=== PATIENT | female | born 1970 | race Caucasian/White ===

== ENCOUNTER 2017-06-11 20:32 | Emergency (ER) | payer BC ==
[2017-06-11 22:18] VITALS: BP 111/85
[2017-06-11] MEDS ORDERED: DOXYcycline CAP(*) 100 MG PO ONE (22:46)
--- NOTE | 2017-06-11 22:50 | ED ---
Skin Complaint - HPI Summary HPI Summary: 46F presents with rash on posterior right thigh for a day. She states area is itchy and appeared to be a bulls eye. She states she saw multiple ticks on her 5 days ago. She denies any fever, neck stiffness, or fatigue. She is concerned she has lyme. - History of Current Complaint Chief Complaint: EDRashSkinAbscess Time Seen by Provider: 06/11/17 21:45 Stated Complaint: RIGHT LEG RASH Pain Intensity: 0 - Allergy/Home Medications Allergies/Adverse Reactions: Allergies Allergy/AdvReac Type Severity Reaction Status Date / Time Codeine Allergy Hives Verified 06/11/17 20:46 Pineapple Allergy Unknown Verified 06/11/17 20:46 Reaction Details PMH/Surg Hx/FS Hx/Imm Hx Endocrine/Hematology History: Denies: Hx Anticoagulant Therapy, Hx Blood Disorders, Hx Diabetes Cardiovascular History: Denies: Hx Hypertension, Hx Pacemaker/ICD History: Reports: Other Problems/Disorders - cervical ca Denies: Hx Renal Disease Musculoskeletal History: Reports: Other Musculoskeletal History - cervical disc issues w/ radiculopathy Sensory History: Denies: Hx Hearing Aid Neurological History: Reports: Hx Headaches - MIGRANES, Other Neuro Impairments/ Disorders - meniere's dz Psychiatric History: Denies: Hx Panic Disorder - Surgical History Surgery Procedure, Year, and Place: TONSILS/ADENOIDS/TUBES CHILD. CYST REMOVED OFF BACK NEAR SPINE 2007. HYSTERECTOMY 2008 (one ovary remains) D&C PRIOR TO HYSTERECTMY, AND LAPROSCOPY Infectious Disease History: No Infectious Disease History: Denies: Hx of Known/Suspected MRSA, Traveled Outside the [place] in Last 30 Days - Family History Known Family History: Positive: Cardiac Disease - Social History Alcohol Use: None Substance Use Type: Reports: None Smoking Status (MU): Never Smoked Tobacco Review of Systems Negative: Fever Negative: Chest Pain Negative: Shortness Of Breath Positive: Rash All Other Systems Reviewed And Are Negative: Yes Physical Exam Triage Information Reviewed: Yes Vital Signs On Initial Exam: Initial Vitals Temp Pulse Resp BP Pulse Ox 99.2 F 71 16 130/91 99 06/11/17 20:40 06/11/17 20:40 06/11/17 20:40 06/11/17 20:40 06/11/17 20:40 Vital Signs Reviewed: Yes Appearance: Positive: Well-Appearing Skin: Positive: Warm, Dry, Other - area of erythema on left posterior thigh with small amount of surrounding redness Head/Face: Positive: Normal Head/Face Inspection Eyes: Positive: Normal, Conjunctiva Clear Respiratory/Lung Sounds: Positive: Clear to Auscultation, Breath Sounds Present Cardiovascular: Positive: Normal, RRR Musculoskeletal: Positive: Other - good pulses Diagnostics - Vital Signs Vital Signs Temp Pulse Resp BP Pulse Ox 06/11/17 22:13 98.2 F 64 16 111/85 100 06/11/17 20:40 99.2 F 71 16 130/91 99 - Laboratory Lab Statement: Any lab studies that have been ordered have been reviewed, and results considered in the medical decision making process. Course/Dx - Course Course Of Treatment: 46F presents with rash on posterior right thigh for a day. She states area is itchy and appeared to be a bulls eye. She states she saw multiple ticks on her 5 days ago. She denies any fever, neck stiffness, or fatigue. She is concerned she has lyme. on exam has potential beginning of bulls eye rash on right posterior thigh. will treat as lyme. patient understands and agrees with plan. - Differential Diagnoses - Skin Complaint Differential Diagnoses: Cellulitis, Contact Dermatitis, Tick Born Illness - Diagnoses Provider Diagnoses: Lyme disease Discharge - Discharge Plan Condition: Good Disposition: HOME Prescriptions: DOXYcycline CAP(*) [DOXYcycline 100MG CAP(*)] 100 mg PO BID #27 cap Patient Education Materials: Lyme Disease (ED) Referrals: Nina Zheng MD [Primary Care Provider] - Additional Instructions: You are being treated for potential lyme disease Take antibiotic twice a day for 14 days, first dose given in ED Take with food, use sunscreen when go outside Follow up with primary care physician Return to ED if develop any new or worsening symptoms
== END 2017-06-11 23:17 | disposition home or self-care (01) ==
LOC: ED 20:32
DX: A69.20 Lyme disease, unspecified (principal)
CPT/HCPCS: 99281; A9270-GY

== ENCOUNTER → 2017-07-31 17:30 | Emergency (ER) | payer SELFPAY ==
[~2017-07-31 17:30] MED LIST: Bacitracin OINTMENT* 1 TUBE TOPICAL ONE
[2017-07-31 17:53] VITALS: BP 124/72
--- NOTE | 2017-07-31 19:15 | ED ---
Burn - HPI Summary HPI Summary: 46F presents with burn on right side of neck and face from oil an hour ago She states that she was at work and something fell into the grease and it splashed onto her face and into her mouth. She immediately spit the grease out and washed her mouth with cold water. She has been placing ice on her neck. She denies any chest pain, SOB, or difficulty swallowing. She has no pain in her mouth. She place burn cream on the area. - History of Current Complaint Chief Complaint: EDBurnSmokeInh Stated Complaint: GREASE LEOS ON NECK & FACE Time Seen by Provider: 07/31/17 18:56 Pain Intensity: 7 - Allergy/Home Medications Allergies/Adverse Reactions: Allergies Allergy/AdvReac Type Severity Reaction Status Date / Time Codeine Allergy Hives Verified 07/31/17 19:02 Pineapple Allergy Shortness Verified 07/31/17 19:02 of Breath PMH/Surg Hx/FS Hx/Imm Hx Endocrine/Hematology History: Denies: Hx Anticoagulant Therapy, Hx Blood Disorders, Hx Diabetes Cardiovascular History: Denies: Hx Hypertension, Hx Pacemaker/ICD History: Reports: Other Problems/Disorders - cervical ca Denies: Hx Renal Disease Musculoskeletal History: Reports: Other Musculoskeletal History - cervical disc issues w/ radiculopathy Sensory History: Denies: Hx Hearing Aid Neurological History: Reports: Hx Headaches - MIGRANES, Other Neuro Impairments/ Disorders - meniere's dz Psychiatric History: Denies: Hx Panic Disorder - Surgical History Surgery Procedure, Year, and Place: TONSILS/ADENOIDS/TUBES CHILD. CYST REMOVED OFF BACK NEAR SPINE 2007. HYSTERECTOMY 2008 (one ovary remains) D&C PRIOR TO HYSTERECTMY, AND LAPROSCOPY Infectious Disease History: No Infectious Disease History: Denies: Hx of Known/Suspected MRSA, Traveled Outside the [place] in Last 30 Days - Family History Known Family History: Positive: Cardiac Disease - Social History Alcohol Use: None Substance Use Type: Reports: None Smoking Status (MU): Never Smoked Tobacco Review of Systems Negative: Fever Negative: Chest Pain Negative: Shortness Of Breath Positive: Other - burn right side of face and neck All Other Systems Reviewed And Are Negative: Yes Physical Exam Triage Information Reviewed: Yes Vital Signs On Initial Exam: Initial Vitals Temp Pulse Resp BP Pulse Ox 98.5 F 76 18 124/72 98 07/31/17 17:50 07/31/17 17:50 07/31/17 17:50 07/31/17 17:50 07/31/17 17:50 Vital Signs Reviewed: Yes Appearance: Positive: Well-Appearing Skin: Positive: Warm, Dry, Other - 1cm burn near right side of mouth and 3cm by 4cm burn to right side of neck that is 1st degree burn without any blisters Eyes: Positive: Normal, EOMI, LEE, Conjunctiva Clear ENT: Positive: Normal ENT inspection, Pharynx normal, TMs normal Respiratory/Lung Sounds: Positive: Clear to Auscultation, Breath Sounds Present Cardiovascular: Positive: Normal, RRR Burn Calculation - [place] Formula for Fluid Resuscitation Weight: 230 lb 24 -Hour Fluid Replacement: 0.0 Diagnostics - Vital Signs Vital Signs Temp Pulse Resp BP Pulse Ox 07/31/17 17:50 98.5 F 76 18 124/72 98 - Laboratory Lab Statement: Any lab studies that have been ordered have been reviewed, and results considered in the medical decision making process. Burn Course/Dx - Course Course Of Treatment: 46F presents with burn on right side of neck and face from oil an hour ago She states that she was at work and something fell into the grease and it splashed onto her face and into her mouth. She immediately spit the grease out and washed her mouth with cold water. She has been placing ice on her neck. She denies any chest pain, SOB, or difficulty swallowing. She has no pain in her mouth. She place burn cream on the area. on exam has small 1cm burn near right side of mouth and 3cm by 4cm burn to right side of neck that is 1st degree burn without any blisters. no airway involvement seen. will d /c with bacitracin. patient understands and agrees with plan. - Diagnoses Differential Diagnoses: Positive: Chemical Burn, Direct Contact Thermal Burn, Inhalation Injury Provider Diagnosis: superifical burn of face and neck Discharge - Discharge Plan Condition: Good Disposition: HOME Patient Education Materials: Superficial Burn (ED) Referrals: Nina Zheng MD [Primary Care Provider] - Additional Instructions: Apply bacitracin cream to area once a day Take Tylenol for pain every 6 hour Follow up with primary if no improvement Return to ED if develop fever, spreading redness, or any new or worsening symptoms
== END | disposition home or self-care (01) ==
LOC: ED 17:30
DX: T20.10XA Burn of first degree of head, face, and neck, unspecified site, initial encounter (principal); T20.17XA Burn of first degree of neck, initial encounter; X10.2XXA Contact with fats and cooking oils, initial encounter; Y93.9 Activity, unspecified; Y92.9 Unspecified place or not applicable
CPT/HCPCS: 99281; A9270-GY

== ENCOUNTER 2018-03-13 19:56 | Emergency (ER) | payer BC, OTHER ==
--- NOTE | 2018-03-13 20:27 | RAD ---
INDICATION: Shortness of breath. COMPARISON: There are no prior studies available for comparison. TECHNIQUE: Dual-energy PA and lateral views of the chest were obtained. FINDINGS: The heart is within normal limits in size. Mediastinal and hilar contours appear within normal limits. The lungs are clear. There is flattening of the diaphragms suggestive of chronic obstructive pulmonary disease. No pleural effusion is seen. IMPRESSION: FINDINGS SUGGESTIVE OF COPD, NO EVIDENCE FOR ACUTE FINDING.
[2018-03-13] MEDS ORDERED: Albuterol/Ipratropium NEB.SOL* Albuterol 2.5 MG/Ipratropium 0.5 MG 3 ML INH ONE ×2 (20:34→21:41)
[2018-03-13] MEDS ORDERED: NS 0.9% 1000 ML* 1,000 ML IV ONE (20:35)
[2018-03-13 20:57] LABS: ABS Basophils 0 10^3/ul (0-0.2); ABS Eosinophils 0.1 10^3/ul (0-0.6); ABS Lymphocytes 1.4 10^3/ul (1.0-4.8); ABS Monocytes 0.5 10^3/ul (0-0.8); ABS Neutrophils 4.8 10^3/ul (1.5-7.7); ABS Nucleated RBC 0 10^3/ul; Eosinophil % 0.8 % (0-6); Hematocrit 36 % (35-47); Hemoglobin 12.4 g/dl (12.0-16.0); Lymphocyte % 20.9 % (25-47); Mean Corpuscular HGB Conc 34 g/dl (31-36); Mean Corpuscular Hemoglobin 31 pg (27-31); Mean Corpuscular Volume 91 fL (80-97); Mean Platelet Volume 8.1 um3 (7.4-10.4); Nucleated Red Blood Cells % 0.1; Platelet Count 201 10^3/ul (150-450); Red Blood Count 3.99 10^6/ul (4.0-5.4); Red Cell Distribution Width 14 % (10.5-15); White Blood Count 6.9 10^3/ul (3.5-10.8)
[2018-03-13 21:24] LABS: EGFR Non-African American 95.2 (>60)
[2018-03-13] MEDS ORDERED: Acetaminophen TAB* 325 MG PO ONE (21:33)
[2018-03-13] MEDS ORDERED: Amoxicillin/Clavulanate TAB* 875 MG PO ONE (22:42)
[2018-03-13] MEDS ORDERED: predniSONE TAB* 20 MG PO ONE (22:42)
[2018-03-13] MEDS ORDERED: Benzonatate CAP* 100 MG PO ONE (22:53)
[2018-03-13 23:50] VITALS: BP 117/75
--- NOTE | 2018-03-14 02:54 | ED ---
Respiratory - HPI Summary HPI Summary: Patient is a 47-year-old female who presents emergency department for cough, fever and shortness of breath times several days. Patient notes that she has been sick on and off for several weeks. Associated symptoms of nasal congestion 3 weeks. Patient has a history of asthma. She states she has not been able to take her albuterol inhalers she's been coughing too much. Denies abdominal pain, vomiting or diarrhea. Also notes a headache from sinus pressure and coughing. Symptoms are moderate in severity. Activities make symptoms worse. Nothing makes symptoms better. Past medical history of A. fib but is not anticoagulated. - History of Current Complaint Chief Complaint: EDUpperRespComplaint Stated Complaint: SOB/COUGH Time Seen by Provider: 03/13/18 20:30 Hx Obtained From: Patient Pain Intensity: 0 Sputum Amount: None - Allergy/Home Medications Allergies/Adverse Reactions: Allergies Allergy/AdvReac Type Severity Reaction Status Date / Time codeine Allergy Hives/Diff. Verified 03/13/18 20:07 Breathing/I tching pineapple Allergy Shortness Verified 03/13/18 20:07 of Breath Home Medications: Home Medications Atorvastatin* 40 mg PO DAILY 03/13/18 [History Confirmed 03/13/18] PMH/Surg Hx/FS Hx/Imm Hx Previously Healthy: Yes Endocrine/Hematology History: Denies: Hx Anticoagulant Therapy, Hx Blood Disorders, Hx Diabetes Cardiovascular History: Reports: Other Cardiovascular Problems/Disorders - afib Denies: Hx Hypertension, Hx Pacemaker/ICD Respiratory History: Reports: Hx Asthma History: Reports: Other Problems/Disorders - cervical ca Denies: Hx Renal Disease Musculoskeletal History: Reports: Other Musculoskeletal History - cervical disc issues w/ radiculopathy Sensory History: Denies: Hx Hearing Aid Neurological History: Reports: Hx Headaches - MIGRANES, Other Neuro Impairments/ Disorders - meniere's dz Psychiatric History: Denies: Hx Panic Disorder - Surgical History Surgery Procedure, Year, and Place: TONSILS/ADENOIDS/TUBES CHILD. CYST REMOVED OFF BACK NEAR SPINE 2007. HYSTERECTOMY 2009 (one ovary remains) D&C PRIOR TO HYSTERECTMY, AND LAPROSCOPY - Immunization History Date of Tetanus Vaccine: utd Date of Influenza Vaccine: none Infectious Disease History: No Infectious Disease History: Denies: Hx of Known/Suspected MRSA, Traveled Outside the [place] in Last 30 Days - Family History Known Family History: Positive: Cardiac Disease - Social History Occupation: Unemployed Lives: With Family Alcohol Use: None Substance Use Type: Reports: None Smoking Status (MU): Never Smoked Tobacco Review of Systems Positive: Fever, Chills Eyes: Negative Positive: Nasal Discharge - nasal ingestion Positive: Other - chest pain with coughing Positive: Shortness Of Breath, Cough Negative: Abdominal Pain, Vomiting, Diarrhea Genitourinary: Negative Positive: Headache. Negative: Weakness, Paresthesia, Numbness, Syncope Psychological: Normal All Other Systems Reviewed And Are Negative: Yes Physical Exam Triage Information Reviewed: Yes Vital Signs On Initial Exam: Initial Vitals Temp Pulse Resp BP Pulse Ox 100.9 F 96 16 126/88 99 03/13/18 20:05 03/13/18 20:05 03/13/18 20:05 03/13/18 20:05 03/13/18 20:05 Vital Signs Reviewed: Yes Appearance: Positive: Pain Distress - Patient sitting up in bed, breathing fast but able to speak in full sentences. Friend present. Skin: Positive: Warm, Dry Eyes: Positive: Normal, LEE ENT: Positive: Normal ENT inspection, Pharynx normal, TMs normal, Other - [place] sinus congestion and pain. Neck: Positive: Supple Respiratory/Lung Sounds: Positive: Other - Diminished breath sounds throughout. Cardiovascular: Positive: Normal, RRR Abdomen Description: Positive: Nontender, Soft Neurological: Positive: Normal, CN Intact II-III Psychiatric: Positive: Normal Diagnostics - Vital Signs Vital Signs Temp Pulse Resp BP Pulse Ox 03/13/18 23:52 98.5 F 82 26 117/75 96 03/13/18 23:27 79 18 117/75 96 03/13/18 23:08 82 29 120/81 98 03/13/18 23:00 84 21 98 03/13/18 22:38 88 29 130/77 96 03/13/18 22:08 90 30 136/86 95 03/13/18 22:00 89 41 99 03/13/18 21:37 95 28 152/95 100 03/13/18 21:08 97 33 135/88 99 03/13/18 21:00 102 40 99 03/13/18 20:55 92 20 100 03/13/18 20:38 92 51 134/79 99 03/13/18 20:32 97 33 99 03/13/18 20:05 100.9 F 96 16 126/88 99 - Laboratory Lab Results: Lab Results 03/13/18 03/13/18 03/13/18 Range/Units 20:09 20:49 20:49 WBC 6.9 (3.5-10.8) 10^3/ul RBC 3.99 L (4.0-5.4) 10^6/ul Hgb 12.4 (12.0-16.0) g/dl Hct 36 (35-47) % MCV 91 (80-97) fL MCH 31 (27-31) pg MCHC 34 (31-36) g/dl RDW 14 (10.5-15) % Plt Count 201 (150-450) 10^3/ul MPV 8.1 (7.4-10.4) um3 Neut % (Auto) 70.2 (38-83) % Lymph % (Auto) 20.9 L (25-47) % [place] % (Auto) 7.4 H (0-7) % Eos % (Auto) 0.8 (0-6) % Baso % (Auto) 0.7 (0-2) % Absolute Neuts (auto) 4.8 (1.5-7.7) 10^3/ul Absolute Lymphs (auto) 1.4 (1.0-4.8) 10^3/ul Absolute Monos (auto) 0.5 (0-0.8) 10^3/ul Absolute Eos (auto) 0.1 (0-0.6) 10^3/ul Absolute Basos (auto) 0 (0-0.2) 10^3/ul Absolute Nucleated RBC 0 10^3/ul Nucleated RBC % 0.1 Sodium 137 L (139-145) mmol/L Potassium 3.8 (3.5-5.0) mmol/L Chloride 104 (101-111) mmol/L Carbon Dioxide 27 (22-32) mmol/L Anion Gap 6 (2-11) mmol/L BUN 14 (6-24) mg/dL Creatinine 0.67 (0.51-0.95) mg/dL Est GFR ( Amer) 122.4 (>60) Est GFR (Non-Af Amer) 95.2 (>60) BUN/Creatinine Ratio 20.9 H (8-20) Glucose 85 (70-100) mg/dL Calcium 9.2 (8.6-10.3) mg/dL Total Bilirubin 0.80 (0.2-1.0) mg/dL AST 15 (13-39) U/L ALT 16 (7-52) U/L Alkaline Phosphatase 88 (34-104) U/L Troponin I 0.00 (<0.04) ng/mL Total Protein 6.8 (6.4-8.9) g/dL Albumin 4.1 (3.2-5.2) g/dL Globulin 2.7 (2-4) g/dL Albumin/Globulin Ratio 1.5 (1-3) Influenza A (Rapid) Negative (Negative) Influenza B (Rapid) Negative (Negative) Result Diagrams: 03/13/18 20:49 03/13/18 20:49 Lab Statement: Any lab studies that have been ordered have been reviewed, and results considered in the medical decision making process. Disposition - Course Course Of Treatment: Patient presenting to the emergency department for ongoing sinus pressure, fever, cough and shortness of breath. Low-grade fever. Oxygen saturation is 99% room air which is normal. Patient was given a breathing treatment. We'll obtain basic labs, chest x-ray, EKG. Chest xray shows findings suggestive of COPD without acute findings, reading per radiology. ECG done at 2037 shows a sinus rhythm of 92 bpm, normal axis, appropriate interval, no ST elevation or depression. Blood work is unremarkable. On reexamination patient is feeling better and breathing easier. She is moving air better on auscultation. Results were discussed. Will treat patient with Augmentin given 3 week history of sinus congestion and pain. We'll also start on a course of steroids and Tessalon [place]. Advised patient to continue albuterol at home as directed. To follow up with family doctor on Thursday and return to the ER symptoms change or worsen. Patient understands and agrees with plan. - Differential Dx - Cardiopulmonary Differential Diagnoses - Cardiopulmonary: Asthma, CAD, Influenza, Sinusitis - Diagnoses Provider Diagnoses: Sinusitis, Bronchitis with bronchospasm Discharge - Sign-Out/Discharge Documenting (check all that apply): Discharge/Admit/Transfer - Discharge Plan Condition: Good Disposition: HOME Prescriptions: Amoxicillin/Clavulanate TAB* [Augmentin TAB 875*] 875 mg PO BID 10 Days #20 tab Benzonatate CAP* [Tessalon 100 MG CAP*] 100 mg PO TID #12 cap predniSONE TAB* [Deltasone TAB*] 40 mg PO DAILY 5 Days #5 tab Patient Education Materials: Sinusitis (ED), Acute Bronchitis (ED) Referrals: Nina Zheng MD [Primary Care Provider] - Additional Instructions: Call PCP on Thursday for an appointment Take medication as directed Continue inhaler as directed Return to ER if symptoms change or worsen - Billing Disposition and Condition Condition: GOOD Disposition: HOME
== END 2018-03-13 23:52 | disposition home or self-care (01) ==
LOC: ED 19:56
DX: J32.9 Chronic sinusitis, unspecified (principal); J40 Bronchitis, not specified as acute or chronic; J98.01 Acute bronchospasm; Z88.5 Allergy status to narcotic agent
CPT/HCPCS: 36415; 71046; 80053; 84484; 85025; 87502; 93005; 99283; A9270-GY; J7512